=== PATIENT | male | born 2000 | race Caucasian/White ===

== ENCOUNTER 2024-04-20 10:28 | Outpatient (CLI) | payer BC | END 2024-04-20 23:59 | disposition home or self-care (01) | LOC: RAD 10:28 | PROVIDERS: ATTEND Nurse Practitioner Family | DX: S42.252A Displaced fracture of greater tuberosity of left humerus, initial encounter for closed fracture (principal); X58.XXXA Exposure to other specified factors, initial encounter; Y93.89 Activity, other specified; Y92.89 Other specified places as the place of occurrence of the external cause; Y99.8 Other external cause status | CPT/HCPCS: 73060 ==